=== PATIENT | female | born 1950 | race Caucasian/White ===

== ENCOUNTER → 2016-06-14 | Outpatient (CLI) | payer MEDICARE ==
[~2016-06-14] MED LIST: ALLO300T2 PO; BOSW5TAB PO; COQ1200C PO; DIOV40TA PO; DORZ2SOL15 RIGHT EYE; EYEDRO EACH EYE; FLUO.25%O RIGHT EYE; FURO40TA PO; GABA100C4 PO; HYDR12.56 PO; HYDR25TA5 PO; LATA0.002 EACH EYE; NAPR220T95 PO; POTA10TA8 PO; TIMO1SOL9 EACH EYE; TYLE3 PO; VALS1TAB65 PO; [UNRECOGNIZED DRUG - CODE] OP
[2016-06-14 11:14] LABS: HEMATOCRIT 38.4 % (35.0-46.0); MEAN CELL VOLUME 86.9 FL (80.0-100.0); MEAN CORPUSCULAR HEMOGLOBIN 28.9 PG (27.0-34.0); MEAN CORPUSCULAR HGB CONC 33.3 % (32.0-36.0); PLATELET COUNT 249 TH/MM3 (150-450); RED BLOOD COUNT 4.42 MIL/MM3 (4.00-5.30); RED CELL DISTRIBUTION WIDTH 15.7 % (11.6-17.2); REVIEW FLAG FINAL; WHITE BLOOD COUNT 6.9 TH/MM3 (4.0-11.0)
[2016-06-14 11:22] LABS: PROTHROMBIN TIME - PATIENT 10.6 SEC (9.8-11.6)
[2016-06-14 11:36] LABS: BICARBONATE 32.3 MEQ/L (21.0-32.0); POTASSIUM 3.3 MEQ/L (3.5-5.1)
== END ==
LOC: CPRE 09:52
PROVIDERS: ATTEND Orthopaedic Surgery
DX: Z01.812 Encounter for preprocedural laboratory examination (principal); G56.01 Carpal tunnel syndrome, right upper limb
CPT/HCPCS: 36415; 80048; 85027; 85610

== ENCOUNTER → 2016-06-16 | Day surgery (SDC) | payer MEDICARE ==
--- NOTE | 2016-06-13 17:56 | MH ---
cc: PANKAJ VARGAS DATE OF ADMISSION: 06/16/2016 ADMITTING DIAGNOSIS: Right carpal tunnel syndrome, pain right hand. HISTORY: The patient is a 65-year-old white female who has experienced a discomfort of both hands of at least 5 months duration. She had noted the gradual onset of her symptoms unrelated to injury but possibly secondary to routine activities which included playing cards, bingo, and utilizing the computer on a routine basis. She had undergone previous evaluation with a field identification specialist at the [facility] where she reports that she was diagnosed as having bilateral carpal tunnel syndrome. She received an injection to both carpal tunnels that did prove to be beneficial. She also began wearing night time cock-up splints that she had available at [facility]. Additional treatment included alternating between Aleve and Indocin for pain management. Within the past month or so, she began to note recurrent symptoms for which she was subsequently seen by the undersigned physician in May of this year. At that time she described a persistent numbness especially involving the index and long finger of both hands, but being more pronounced on the right side. She was describing dropping small objects because of difficulty related to her ongoing symptoms. Following her initial review, recommendation was made to proceed with neurology evaluation and EMG studies, the results of which identified severe median neuropathy at the wrists bilaterally compatible with carpal tunnel syndrome. The patient returned to the office in follow up disposition and at that time indicated her desire to receive a more definitive course of treatment. The involvement of carpal tunnel release was reviewed for which the patient indicated her full understanding and expressed her desire to proceed accordingly. In compliance with her wishes, she is currently being admitted in order that the above be accomplished. PAST MEDICAL HISTORY, HOSPITALIZATIONS AND SURGERIES: 1. section x3. 2. Tonsillectomy 3. Excision of an ovarian cyst on the right side. 4. Appendectomy. 5. Arthroscopic surgery of the right shoulder. 6. Laparoscopic cholecystectomy 7. Abdominal hysterectomy 8. Bilateral LASIK surgery. 9. Corneal transplant left eye. 10. Cataract excision left eye. The patient's medical illnesses include: Hypertension. MEDICATIONS: 1. Valsartan 160 milligrams daily. 2. Hydrochlorothiazide 12.5 mg daily. 3. Aleve. 4. Allopurinol 5. Co Q10 6. Dorzolamide 7. Hydrochloride 2% ophthalmic solution 8. Furosemide 20 milligrams 9. Gabapentin 100 milligrams 10. Osteo Bi-Flex. ALLERGIES: ESSENTIALLY ALL ANTIBIOTICS EXCEPT SULFA AND STATINS. THE ANTIBIOTIC REACTION HAS BEEN ITCHING AND HIVES. PROPOFOL HAS CAUSED PANCREATITIS. FOOD ALLERGIES TO SHELLFISH, FISH IN GENERAL WHICH HAVE CAUSED ANAPHYLACTIC TYPE REACTION. ALLERGIC TO NICKEL (METAL). METHYL METHACRYLATE. REVIEW OF SYSTEMS: She wears glasses for reading purposes. Denies headache, seizure or syncope. No sinus congestion or epistaxis. Auditory acuity intact. No tinnitus. No bleeding gums or dysphagia. No cough, shortness of breath, upper respiratory infection, pneumonia or tuberculosis. No angina. She is medically managed for hypertension. Her appetite is good. Bowel movements are regular. No hepatitis. She is status post cholecystectomy. No ulcers. She has had a history of hemorrhoids. No urinary tract infection. No kidney stones. Fracture of the right wrist treated by cast immobilization. Osteoarthritis of both knees. No psychiatric illness. Remaining review of systems is unremarkable and noncontributory. FAMILY HISTORY: The patient has been for at least 32 years. She has two sons and one daughter, all described as being in good heatlh. Family history is positive for hypertension and diabetes, as well as renal and thyroid cancer, heart disease. She has two grandchildren with congenital heart and kidney problems. SOCIAL HISTORY: The patient completed a Bachelor's of Nursing Degree with additional credits towards a Master's Degree thereafter. 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 Denies active use of tobacco, ethanol consumption rarely. PHYSICAL EXAMINATION Height 5 feet 1/2 inch, weight 226 pounds. GENERAL: An alert, oriented and responsive 65-year-old white female who sits quietly upon the examination table with no obvious distress. Head, ears, eyes, nose and throat: Pupils are equally round and reactive to light. Extraocular movements full. Sclerae clear. External nares clear. External auditory canals clear. Dental intact. Mucous membranes pink and moist. Pharynx clear. Neck: Supple. Active range of motion without appreciable pain. Carotid pulse palpable bilaterally. Trachea midline. Thyroid without enlargement. Lungs: Clear to auscultation and percussion. No CVA tenderness. No discomfort throughout the dorsal lumbar spine. Heart: Regular rhythm. No murmur or gallop. Abdomen is soft, nontender. Bowel sounds present. Pelvic: Deferred. Extremities: Right hand, no significant swelling or deformity. There is no appreciable thenar or hypothenar atrophy. Intrinsic function is grossly intact with flexion/extension maneuvering. Hall Director strength intact. Diminished sensation is generalized about the finger region being most pronounced about the index and long finger. Tinel's sign negative, Durkan's test negative, Phalen's test positive. Radial pulse palpable. Satisfactory mobility of the wrist joint. Neurologic: Cranial nerves II-XII grossly intact. IMPRESSION Right carpal tunnel syndrome, pain right hand. PLAN Right carpal tunnel release. The nature of the planned surgical procedure, the potential complications and risks associated, the expectations of surgery and the consent form were thoroughly reviewed with the patient prior to admission to the hospital. Amie has indicated her full understanding regarding all of the above and given consent to proceed with treatment as outlined. Pankaj Vargas MD NBS/COSMO /4:50 PM /5:06 PM
[~2016-06-16] VITALS: Ht 153.9 cm; Wt 104.5 kg
[~2016-06-16] MED LIST changes: +ACETAMINOPHEN/HYDROcodone 325 MG/5 MG TAB PO PRN; +CHLORHEXIDINE GLUCONATE 2 % 1 PACK (2 CLOTHS) TOPICAL PRN; +CHLORHEXIDINE GLUCONATE 4% SOLN 120 ML BTL TOPICAL SCH; -DIOV40TA PO; +DO NOT ADM ANY ANTICOAGULANT DRUGS PRN; -EYEDRO EACH EYE; -GABA100C4 PO; -HYDR12.56 PO; +INSULIN HUMAN REGULAR 1,000 UNITS/10 ML VIAL SQ PRN; +KETAMINE HCL 500 MG/5 ML VIAL ONE; +LACTATED RINGER'S 1000 ML IV PRN; +METOPROLOL TARTRATE 25 MG TAB PO PRN; +MIDAZOLAM HCL 2 MG/2 ML VIAL ONE; +MIDAZOLAM HCL 5 MG/5 ML VIAL ONE; +MORPHINE SULFATE 10 MG/ML INJ IM PRN; +ONDANSETRON HCL 4 MG/2 ML VIAL IV PUSH PRN; +SODIUM CHLORID 0.9% 500 ML IV PRN; -TIMO1SOL9 EACH EYE; -TYLE3 PO; -[UNRECOGNIZED DRUG - CODE] OP; +ePHEDrine/NS 25 MG/5 ML SYR IV ONE
[2016-06-16 07:25] VITALS: BP 136/85; PULSE 75; RESP 16; TEMP 98.9; O2SAT 95
[2016-06-16 11:30] VITALS: BP 112/64; PULSE 87; RESP 18; TEMP 97.5; O2SAT 94
--- NOTE | 2016-06-16 14:31 | MP ---
cc: PANKAJ GONZALES DATE OF SURGERY: 06/16/2016 PREOPERATIVE DIAGNOSIS Right carpal tunnel syndrome. POSTOPERATIVE DIAGNOSIS Right carpal tunnel syndrome. PROCEDURE Right carpal tunnel release. SURGEON Sam ANESTHESIA General endotracheal. FORMAT Following induction of satisfactory general anesthesia by endotracheal intubation as completed per the Department of Anesthesia, a tourniquet was established around the proximal portion of the right lower extremity. The extremity proper was prepped with Betadine solution and thereafter draped into a sterile field in the routine manner. Prior to initiation of the actual procedure the standard timeout protocol was completed. All parameters were appropriately addressed and confirmed by operating room personnel. The extremity was elevated for approximately one minute and the tourniquet thus inflated to 200 mmHg pressure. A sharp skin incision was initiated midline in the proximal palmar region immediately distal to the flexor crease of the wrist and developed through underlying subcutaneous tissue with hemostasis maintained by electrocautery. By deepening dissection utilizing loupe magnification the transverse carpal ligament was exposed. The sharp entry point was initiated proximally. A mosquito clamp was passed deep to the ligamentous structure but superficial to the underlying nerve and under direct visualization the ligament was released in both a proximal and distal orientation. Blunt probing proximally and distally confirmed an adequate decompression within the confines of the carpal tunnel space. Examination of the underlying median nerve revealed obvious inflammatory reaction with localized hyperemic changes and a mild compressive effect of the nerve. The wound was thereafter thoroughly irrigated with saline solution. Skin margins were re-approximated with interrupted 4-0 nylon suture, Xeroform gauze and a bulky dry sterile hand dressing applied. The tourniquet was deflated after 10 minutes of tourniquet time. Anesthesia was discontinued and the patient thus transferred to a hospital stretcher and returned to the recovery room in satisfactory condition having tolerated her operative procedure well. Estimated blood loss was less than 5 cc. MD LUKE Vallejo/BT /9:38 AM /2:28 PM
== END | disposition home or self-care (01) ==
LOC: HSDC 05:51
PROVIDERS: ATTEND Orthopaedic Surgery
DX: G56.01 Carpal tunnel syndrome, right upper limb (principal); I10 Essential (primary) hypertension
CPT/HCPCS: 01810; 64721; J2250; J3010